=== PATIENT | female | born 1960 | race African-American/Black ===

== ENCOUNTER 2020-05-12 16:14 | Outpatient (CLI) | payer OTHER, SELFPAY ==
--- NOTE | ~2020-05-12 | US_ITS ---
EXAMINATION:US venous doppler LE LT INDICATION:Left leg pain TECHNIQUE: Multiple grayscale, color flow and Doppler images of the left lower extremity deep venous systems were obtained and reviewed. COMPARISON:No prior studies for comparison. FINDINGS: The common femoral, superficial femoral and popliteal veins demonstrate normal respiratory variation, augmentation and compressibility. Color flow is also seen within the posterior tibial, pe roneal, greater saphenous and profunda veins. IMPRESSION: 1: No lower extremity deep venous thrombosis. Reviewed, dictated and finalized at location B.
== END 2020-05-12 16:15 | disposition home or self-care (01) ==
PROVIDERS: PCP Family Medicine; Visit Provider Physician Assistant
DX: M79.605 Pain in left leg (principal); M79.89 Other specified soft tissue disorders
CPT/HCPCS: 93971

== ENCOUNTER → 2020-09-06 10:53 | Outpatient (CLI) | payer OTHER, SELFPAY ==
--- NOTE | ~2020-09-06 | CT_ITS ---
EXAMINATION: CT abdomen wo con DATE: 09/06/2020 11:08 INDICATION: Left upper quadrant pain, left upper quadrant mass TECHNIQUE: Computed tomography (CT) of the abdomen was performed without intravenous contrast. The do se-length product (DLP) was 584.02 mGy-cm. Automated exposure control and iterative reconstruction te chnique were employed. COMPARISON: 01/03/2017 FINDINGS: The lung bases are clear. The heart size is normal. The liver, spleen, pancreas, gallbladde r, and adrenal glands are normal. There is a 1.7 cm cyst of the left kidney upper pole. There is an 1 1 mm cyst of right kidney upper pole. There are no pathologically enlarged abdominal lymph nodes. The re is no free intraperitoneal gas or evidence of bowel obstruction. There is mild lumbar spondylosis. There is a tiny fat-containing umbilical hernia. IMPRESSION: 1. No CT correlate for the patient's symptoms. Reviewed, dictated and finalized at location A. MOTIVE MAINTENANCE TECHNICIAN
== END ==
PROVIDERS: PCP Family Medicine; Visit Provider Surgery
DX: R10.12 Left upper quadrant pain (principal); N28.1 Cyst of kidney, acquired; K42.9 Umbilical hernia without obstruction or gangrene; M47.816 Spondylosis without myelopathy or radiculopathy, lumbar region
CPT/HCPCS: 74150

== ENCOUNTER → 2020-10-26 13:00 | Outpatient (CLI) | payer OTHER, SELFPAY ==
--- NOTE | ~2020-10-26 | US_ITS ---
EXAMINATION: US soft tissue abdomen DATE: 10/26/2020 13:20 INDICATION: Left upper quadrant abdominal wall mass TECHNIQUE: Multiple grayscale and Doppler ultrasound images of the abdominal wall the left upper quad rant of the abdomen at the region of concern were obtained. COMPARISON: CT dated 09/06/2020 FINDINGS: Normal appearance to the subcutaneous fat and underlying anterior abdominal wall musculature at the l eft upper quadrant region of concern. No abnormal masses or fluid collections identified. IMPRESSION: 1. Normal study. No abnormal masses or fluid collections identified. Reviewed, dictated and finalized at location B. ONNEL ADMINISTRATOR
== END ==
PROVIDERS: PCP Family Medicine; Visit Provider Surgery
DX: R19.02 Left upper quadrant abdominal swelling, mass and lump (principal)
CPT/HCPCS: 76705

== ENCOUNTER 2022-07-17 09:21 | Emergency (ER) | payer OTHER, SELFPAY ==
--- NOTE | ~2022-07-17 | XR_ITS ---
XR foot RT min 3V 07/17/2022 10:02 INDICATION: Dorsal foot pain PROCEDURE: 4 views right foot COMPARISON: No prior studies for comparison. FINDINGS: Fracture, dislocation or subluxation is not identified. Lisfranc joint is intact. The soft tissues appear within normal limits. No foreign bodies are identified. IMPRESSION: 1: NO ACUTE BONE OR JOINT ABNORMALITY IDENTIFIED. Reviewed, dictated and finalized at location B. CCO HANGER
--- NOTE | 2022-07-17 09:25 | ED.LOWEXIN ---
HPI - Extremity Injury (Lower) General Chief Complaint: Extremity Injury, Lower Stated Complaint: rt foot injury Time Seen by Provider: 07/17/22 09:25 Source: patient and RN notes reviewed History of Present Illness HPI Narrative: Patient is a 61-year-old female who presents to urgent care with complaints of right foot pain. Patient states that she wore tight she wants Sunday and noticed she was having pain across the top of her foot afterwards. Patient states that goes into the center of the foot with movement, flexion or weight-bearing. Denies any history of fracture to the right foot. Denies history of gout. Patient states that she is taking aspirin for the pain. No other acute complaints. No acute distress noted. Patient aware of plan of care. Some parts of this dictation were generated by voice recognition software and may contain typographical and/or grammatical inaccuracies. Related Data Home Medications Medication Instructions Recorded Confirmed aspirin 81 mg tablet,delayed 81 mg PO DAILY 02/03/20 07/17/22 release evolocumab 420 mg/3.5 mL 420 mg subcut MONTHLY 02/03/20 07/17/22 subcutaneous wearable injector (Repatha Pushtronex) olmesartan 40 mg-amlodipine 10 1 tablet PO DAILY 02/03/20 07/17/22 mg-hydrochlorothiazide 25 mg tablet (Tribenzor) spironolactone 25 mg tablet 25 mg PO DAILY 02/03/20 07/17/22 Allergies Allergy/AdvReac Type Severity Reaction Status Date / Time metoclopramide Allergy Severe throat Verified 07/17/22 09:37 swelling Review of Systems Review of Systems: CONSTITUTIONAL: Denies fever, chills, or sweats. EYES: Denies visual changes, redness, or discharge. ENT: Denies rhinorrhea, congestion, sore throat, or otalgia. CARDIOVASCULAR: Denies chest pain, palpitations, or edema. RESPIRATORY: Denies cough or dyspnea. GASTROINTESTINAL: Denies abdominal pain, nausea, vomiting, or diarrhea. GENITOURINARY: Denies dysuria or hematuria. SKIN: Denies rash or itching. MUSCULOSKELETAL: Reports of right foot pain NEUROLOGIC: Denies headache, numbness, or weakness. All other systems reviewed are negative, except as documented in HPI. [facility] Past Medical History Medical History (Updated 07/17/22 @ 10:27 by ZORAIDA Mazariegos) Benign essential HTN CAD (coronary atherosclerotic disease) Chronic constipation History of rectal polyps Hyperlipidemia LGSIL on Pap smear of cervix Retinal tears, multiple, without detachment Surgical History Surgical History (Updated 06/08/22 @ 09:[address] MD) H/O breast biopsy H/O colonoscopy with polypectomy H/O colposcopy with cervical biopsy History of heart bypass surgery x2 S/P CABG x 2 Family History Family History Father Cerebrovascular accident Mother Diabetes mellitus Hypertension Family history of cardiovascular disease High cholesterol Sibling Diabetes mellitus Hypertension Family history of cardiovascular disease Grandparent Cancer Social History Social History (Updated 06/08/22 @ 07:36 by Khushbu Nina) Social History: Smoking status: Never smoker Second hand tobacco smoke exposure: No Alcohol intake: never Substance use: never Substance use type: does not use 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 HEAD: normocephalic, atraumatic. EYES: PERRL. Sclera clear/white. Vision is grossly intact. EARS: External ears normal NOSE: External nose normal with no obvious nasal discharge, nares without redness, no rhinorrhea. THROAT: Mucous membranes moist NECK: Neck supple SKIN: warm, intact with no suspicious lesions or rash, good texture and turgor. NEURO
[2022-07-17 09:34] VITALS: BP 117/76; PULSE 86; RESP 16; TEMP 36.5; O2SAT 100
== END 2022-07-17 10:37 | disposition home or self-care (01) ==
PROVIDERS: Emergency Provider Nurse Practitioner Family; PCP Family Medicine
DX: M79.671 Pain in right foot (principal); Z79.82 Long term (current) use of aspirin; I25.10 Atherosclerotic heart disease of native coronary artery without angina pectoris; I10 Essential (primary) hypertension; E78.5 Hyperlipidemia, unspecified; Z95.1 Presence of aortocoronary bypass graft
CPT/HCPCS: 73630; 99213; G0463

== ENCOUNTER → 2022-09-11 16:15 | Outpatient (CLI) | payer OTHER, SELFPAY ==
--- NOTE | ~2022-09-11 | XR_ITS ---
[id number]_CR DATE: 09/11/2022 16:34 INDICATION: Left pleural pain TECHNIQUE: PA chest. 3 views of the left ribs. COMPARISON: None FINDINGS: Status post sternotomy and probable coronary artery bypass graft surgery. There is mild left glenohumeral osteoarthritis. No pulmonary infiltrate or consolidation, pleural effusion or pulmonary vascular congestion or pneumo thorax. Heart size borderline. No left rib fracture or bone destruction is detected. IMPRESSION: No left rib fracture or bone destruction Status post sternotomy and probable coronary bypass graft surgery Reviewed, dictated and finalized at Location A. Reviewed, dictated and finalized at location B. E WATER WORKER
== END ==
PROVIDERS: PCP Nurse Practitioner Gerontology; Visit Provider Nurse Practitioner Gerontology
DX: R07.81 Pleurodynia (principal)
CPT/HCPCS: 71101

== ENCOUNTER 2022-10-30 00:27 | Day surgery (SDC) | payer OTHER, SELFPAY ==
[2022-10-17 13:03] VITALS: BMI 33.3
--- NOTE | 2022-10-27 16:16 | PM.HPGS ---
History of Present Illness History of Present Illness Consent: Risks, benefits, and alternatives have been discussed and questions answered. Patient agrees to proceed with procedure. Chief complaint: GERD Narrative: Reyna Magdaleno is a 62 year old female Referred for investigation of chronic reflux symptoms. she will often get heartburn that is generally relieved by taking Rolaids. She also has episodes of regurgitation. In addition to all this, over the last year so she has noticed a bulge to the left of the epigastric area. This is much more noticeable if she is standing up or if she coughs. She has had no weight loss. Very rarely she will have some difficulty swallowing food. Review of Systems Review of Systems: All systems reviewed & are unremarkable except as noted in HPI and below PMFSH Past Medical History Medical History Benign essential HTN CAD (coronary atherosclerotic disease) Chronic constipation History of rectal polyps Hyperlipidemia LGSIL on Pap smear of cervix Retinal tears, multiple, without detachment Surgical History Surgical History H/O breast biopsy H/O colonoscopy with polypectomy H/O colposcopy with cervical biopsy History of heart bypass surgery x2 S/P CABG x 2 Family History Family History Father Cerebrovascular accident Mother Diabetes mellitus Hypertension Family history of cardiovascular disease High cholesterol Sibling Diabetes mellitus Hypertension Family history of cardiovascular disease Grandparent Cancer Social History Social History Social History: Smoking status: Never smoker Second hand tobacco smoke exposure: No Alcohol intake: never Substance use: never Substance use type: does not use Lack of Transportation: No Lack of Food: Never True Current Housing: I Have Housing Concerned About Future Housing: No Difficulty Paying Gas/Electric Bills: No Difficulty Paying for Meds: No Currently Unemployed: No Education: Bachelor's Degree Living arrangements: alone Occupation/Education: occupation 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 Sexual Orientation (if Verbalized by the Patient): Straight or Heterosexual Meds Home Medications and Allergies Home Medications Medication Instructions Recorded Confirmed Type aspirin 81 mg tablet,delayed 81 mg PO DAILY 02/03/20 10/17/22 History release olmesartan 40 mg-amlodipine 10 1 tablet PO DAILY 02/03/20 10/17/22 History mg-hydrochlorothiazide 25 mg tablet (Tribenzor) spironolactone 25 mg tablet 25 mg PO DAILY 02/03/20 10/17/22 History alirocumab 75 mg/mL subcutaneous 75 mg subcut Q14D 10/17/22 10/17/22 History pen injector (Praluent Pen) Allergies Allergy/AdvReac Type Severity Reaction Status Date / Time metoclopramide Allergy Severe throat Verified 10/30/22 07:19 swelling Exam Const: General: alert Orientation/consciousness: patient oriented x3 Resp: Auscultation: clear to auscultation bilaterally Cardio: Rhythm: regular rhythm GI: GI Palp: Yes Soft to palpation and No Tenderness to palpation present (GI) Neuro: General: patient oriented x3 Assessment and Plan Assessment and plan (1) GERD (gastroesophageal reflux disease): Code(s): K21.9 - Gastro-esophageal reflux disease without esophagitis Status: Acute Assessment and Plan: EGD with possible biopsy or dilatation or cautery.
[2022-10-30 07:20] VITALS: BP 146/86; PULSE 81; RESP 18; TEMP 36.1; O2SAT 100
[2022-10-30] MEDS: LACTATED RINGERS 1,000 ML 150 ML IV CONT (07:30)
--- NOTE | 2022-10-30 07:55 | WPDANESEPPF ---
Anes - Initial Pre Proc Eval Procedure: Operation Date: 10/30/22 08:30 Proposed Procedures p Esophagogastroduodenoscopy - Braden Bhakta MD Date/Time: 10/30/22 07:55 Surgeon: Braden Bhakta MD Pre Op Diagnosis: GERD Patient Data Age: 62 Gender: F Height: 1.68 m Weight: 93.3 kg Last Vital Signs Temp 36.1 C L 10/30/22 07:20 Pulse 81 10/30/22 07:20 Resp 18 10/30/22 07:20 BP 146/86 H 10/30/22 07:20 Pulse Ox 100 10/30/22 07:20 O2 Del Method Room Air 10/30/22 07:20 Allergies Allergy/AdvReac Type Severity Reaction Status Date / Time metoclopramide Allergy Severe throat Verified 10/30/22 07:19 swelling Home Medications Medication Instructions Recorded Confirmed Type aspirin 81 mg tablet,delayed 81 mg PO DAILY 02/03/20 10/17/22 History release olmesartan 40 mg-amlodipine 10 1 tablet PO DAILY 02/03/20 10/17/22 History mg-hydrochlorothiazide 25 mg tablet (Tribenzor) spironolactone 25 mg tablet 25 mg PO DAILY 02/03/20 10/17/22 History alirocumab 75 mg/mL subcutaneous 75 mg subcut Q14D 10/17/22 10/17/22 History pen injector (Praluent Pen) Patient hx anesthesia problems: none Family hx anesthesia problems: none Results Review: All pre-operative results and documents have been reviewed as part of the pre-operative evaluation. [facility] Past Medical History Medical History Benign essential HTN CAD (coronary atherosclerotic disease) Chronic constipation History of rectal polyps Hyperlipidemia LGSIL on Pap smear of cervix Retinal tears, multiple, without detachment Surgical History Surgical History H/O breast biopsy H/O colonoscopy with polypectomy H/O colposcopy with cervical biopsy History of heart bypass surgery x2 S/P CABG x 2 Family History Family History Father Cerebrovascular accident Mother Diabetes mellitus Hypertension Family history of cardiovascular disease High cholesterol Sibling Diabetes mellitus Hypertension Family history of cardiovascular disease Grandparent Cancer Social History Social History Social History: Smoking status: Never smoker Second hand tobacco smoke exposure: No Alcohol intake: never Substance use: never Substance use type: does not use Lack of Transportation: No Lack of Food: Never True Current Housing: I Have Housing Concerned About Future Housing: No Difficulty Paying Gas/Electric Bills: No Difficulty Paying for Meds: No Currently Unemployed: No Education: Bachelor's Degree Living arrangements: alone Occupation/Education: occupation 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 Informed Consent: The patient's anesthetic plan and its attendant risks and benefits were discussed with the patient/family/POA. Questions were solicited and answers provided to the satisfaction of the patient/family/POA.
[2022-10-30 08:41] VITALS: BP 130/74; PULSE 79; RESP 22; O2SAT 98
[2022-10-30 08:51] VITALS: BP 131/71; PULSE 74; RESP 21; O2SAT 100
[2022-10-30 09:01] VITALS: BP 143/76; PULSE 78; RESP 19; O2SAT 100
== END 2022-10-30 09:14 | disposition home or self-care (01) ==
PROVIDERS: PCP Family Medicine; Visit Provider Internal Medicine Gastroenterology
PROC: 0DJ08ZZ Inspection of Upper Intestinal Tract, Via Natural or Artificial Opening Endoscopic (ICD-10-PCS; CPT 43235; principal; 2022-10-30 08:30)
DX: K21.9 Gastro-esophageal reflux disease without esophagitis (principal); I10 Essential (primary) hypertension; I25.10 Atherosclerotic heart disease of native coronary artery without angina pectoris; E78.5 Hyperlipidemia, unspecified; K59.09 Other constipation; Z95.1 Presence of aortocoronary bypass graft; E66.9 Obesity, unspecified; Z68.33 Body mass index [BMI] 33.0-33.9, adult; Z79.82 Long term (current) use of aspirin
CPT/HCPCS: 43239; 87081; J2704; J7120

== ENCOUNTER → 2023-01-01 15:43 | Outpatient (CLI) | payer OTHER, SELFPAY ==
--- NOTE | ~2023-01-01 | US_ITS ---
US renal BI 01/01/2023 16:02 Procedure: Realtime transabdominal ultrasound of the kidneys and bladder. Indication: Chronic kidney disease stage III B Comparison: CT dated 09/06/2019 Findings: Renal echotexture is normal bilaterally without hydronephrosis, contour deforming mass or r enal calculus. There are bilateral renal cysts measuring 1.4 cm on the right and 2.2 cm on the left. The right kidney measures 10.3 cm and left kidney measures 11.3 cm. There are small echogenic masses inferiorly and posteriorly in the bladder measuring 11 and 1.7 cm respectively. Impression: 1: Bladder masses, largest measuring 1.7 cm, located anteriorly/posteriorly. Differential diagnosis i ncludes blood clot and bladder cancer. Recommend correlation with cystoscopy. 2: Bilateral renal cysts. Reviewed, dictated and finalized at location B. Impression: 1: Bladder masses, largest measuring 1.7 cm, located anteriorly/posteriorly. Di fferential diagnosis includes blood clot and bladder cancer. Recommend correlat ion with cystoscopy. 2: Bilateral renal cysts.
== END ==
PROVIDERS: PCP Internal Medicine Nephrology; Visit Provider Internal Medicine Nephrology
DX: I10 Essential (primary) hypertension (principal); N18.32 Chronic kidney disease, stage 3b; N32.9 Bladder disorder, unspecified; N28.1 Cyst of kidney, acquired
CPT/HCPCS: 76775

== ENCOUNTER 2023-02-15 19:47 | Emergency (ER) | payer OTHER, SELFPAY ==
--- NOTE | ~2023-02-15 | XR_ITS ---
EXAM: XR foot RT min 3V DATE: 02/15/2023 21:34 HISTORY: Pain at base of 5th metatarsal . COMPARISON: 07/17/2022. FINDINGS: Normal mineralization. No fracture or dislocation. No lytic or blastic lesion. Mild hallux valgus. Mild degenerative change at the first MTP joint. No erosion or periosteal change. Soft tissu e swelling in the foot and ankle. IMPRESSION: No acute osseous finding in the right foot. Reviewed, dictated and finalized at location K.
--- NOTE | ~2023-02-15 | XR_ITS ---
EXAM: XR ankle RT min 3V DATE: 02/15/2023 20:06 HISTORY: Fall, right ankle pain . COMPARISON: None available. FINDINGS: Normal mineralization. No fracture or dislocation. No lytic or blastic lesion. Mild degene rative change at the tibiotalar joint and multiple midfoot joints. No erosion or periosteal change. M edial soft tissue swelling. IMPRESSION: No acute osseous finding in the right ankle. Reviewed, dictated and finalized at location K.
[2023-02-15 19:52] VITALS: BP 120/79; PULSE 95; RESP 14; TEMP 36.7; O2SAT 100
--- NOTE | 2023-02-15 21:24 | ED.GENADULT ---
HPI - General Adult General Chief complaint: Extremity Injury, Lower Stated complaint: GLF Time Seen by Provider: 02/15/23 20:04 History of Present Illness HPI narrative: this is a 62-year-old female presenting ED with ankle pain. Patient was walking when she tripped over her sweater. She had an inversion injury to her right ankle. She then fell landed on her left wrist. She has been unable to bear weight on the left foot. She is not taking anything for pain control. She refused any workup of her left wrist as it is not bothering her. Related Data Home Medications Medication Instructions Recorded Confirmed aspirin 81 mg tablet,delayed 81 mg PO DAILY 02/03/20 01/08/23 release olmesartan 40 mg-amlodipine 10 1 tablet PO DAILY 02/03/20 01/08/23 mg-hydrochlorothiazide 25 mg tablet (Tribenzor) spironolactone 25 mg tablet 25 mg PO DAILY 02/03/20 01/08/23 alirocumab 75 mg/mL subcutaneous 75 mg subcut Q14D 10/17/22 01/08/23 pen injector (Praluent Pen) Allergies Allergy/AdvReac Type Severity Reaction Status Date / Time metoclopramide Allergy Severe throat Verified 02/06/23 08:41 swelling PMFSH Past Medical History Medical History Benign essential HTN CAD (coronary atherosclerotic disease) Chronic constipation Chronic kidney disease History of rectal polyps Hyperlipidemia LGSIL on Pap smear of cervix Retinal tears, multiple, without detachment Surgical History Surgical History H/O breast biopsy H/O colonoscopy with polypectomy H/O colposcopy with cervical biopsy History of heart bypass surgery x2 S/P CABG x 2 S/P cataract extraction and insertion of intraocular lens Right eye. Family History Family History Father Cerebrovascular accident Mother Diabetes mellitus Hypertension Family history of cardiovascular disease High cholesterol Sibling Diabetes mellitus Hypertension Family history of cardiovascular disease Grandparent Cancer Social History Social History Social History: Smoking status: Never smoker Second hand tobacco smoke exposure: No Alcohol intake: never Substance use: never Substance use type: does not use Lack of Transportation: No Lack of Food: Never True Current Housing: I Have Housing Concerned About Future Housing: No Difficulty Paying Gas/Electric Bills: No Difficulty Paying for Meds: No Currently Unemployed: No Education: Bachelor's Degree Living arrangements: alone Occupation/Education: occupation 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 Head: atraumatic. EYES: EOMI, NOSE: Atraumatic NECK: Trachea midline RESPIRATORY: No increased rate of breathing CARDIOVASCULAR: RRR, ABDOMINAL: Non-distended MUSCULOSKELETAl: Focal exam of the right lower extremity revealed diffuse swelling of the ankle. There is tenderness to palpation over the base of5th metacarpal, and ATFL. Sensation light touch and motor function intact. NEURO: Alert. Moving 4/4 extremities SKIN:: Warm, dry. Normal color PSYCHIATRIC: Normal affect Course Vital Signs Vital signs: Vital Signs Temperature 98.0 F 02/15/23 19:52 Pulse Rate 95 02/15/23 19:52 Respiratory Rate 14 02/15/23 19:52 Blood Pressure 120/79 02/15/23 19:52 Pulse Oximetry 100 02/15/23 19:52 Oxygen Delivery Room Air 02/15/23 19:52 Temperature 98.0 F 02/15/23 19:52 Pulse Rate 95 02/15/23 19:52 Respiratory Rate 14 02/15/23 19:52 Blood Pressure 120/79 02/15/23 19:52 Pulse Oximetry
== END 2023-02-15 22:05 | disposition home or self-care (01) ==
PROVIDERS: Emergency Provider Emergency Medicine; PCP Family Medicine
DX: S93.401A Sprain of unspecified ligament of right ankle, initial encounter (principal); I12.9 Hypertensive chronic kidney disease with stage 1 through stage 4 chronic kidney disease, or unspecified chronic kidney disease; N18.9 Chronic kidney disease, unspecified; I25.10 Atherosclerotic heart disease of native coronary artery without angina pectoris; E78.5 Hyperlipidemia, unspecified; Z95.1 Presence of aortocoronary bypass graft; Z87.19 Personal history of other diseases of the digestive system; Z79.82 Long term (current) use of aspirin; Z98.41 Cataract extraction status, right eye; Z96.1 Presence of intraocular lens; X50.9XXA Other and unspecified overexertion or strenuous movements or postures, initial encounter; W01.0XXA Fall on same level from slipping, tripping and stumbling without subsequent striking against object, initial encounter
CPT/HCPCS: 73610; 73630; 99283

== ENCOUNTER → 2023-04-28 11:27 | Outpatient (CLI) | payer OTHER, SELFPAY ==
--- NOTE | ~2023-04-28 | MM_ITS ---
EXAMINATION: MM screening sarita BI w darryn HISTORY: Screening mammogram TECHNIQUE: Craniocaudal and mediolateral oblique 3-D tomosynthesis images were obtained and synthetic 2-D images were generated. CAD analysis was submitted and interpreted. COMPARISON: 03/28/2019, 05/16/2016 bilateral screening mammogram examinations BREAST PARENCHYMAL COMPOSITION: The breasts are heterogeneously dense, which may obscure small masses . FINDINGS: There is no evidence of suspicious mass, calcification, or architectural distortion to sugg est malignancy in either breast. There has been no suspicious interval change. IMPRESSION: 1. No mammographic evidence of malignancy. 2. Recommend routine screening mammography in one year. BI-RADS Category 1: Negative Reviewed, dictated and finalized at location A.
== END ==
PROVIDERS: PCP Family Medicine; Visit Provider Registered Nurse
DX: Z12.31 Encounter for screening mammogram for malignant neoplasm of breast (principal)
CPT/HCPCS: 77063; 77067

== ENCOUNTER 2023-07-28 19:41 | Emergency (ER) | payer OTHER, SELFPAY ==
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
[2023-07-28 20:03] VITALS: BP 129/64; PULSE 92; RESP 18; TEMP 36.6; O2SAT 100
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
== END 2023-07-29 02:36 | disposition home or self-care (01) ==
PROVIDERS: Emergency Provider Emergency Medicine; PCP Family Medicine
DX: S09.90XA Unspecified injury of head, initial encounter (principal); S16.1XXA Strain of muscle, fascia and tendon at neck level, initial encounter; I25.10 Atherosclerotic heart disease of native coronary artery without angina pectoris; I12.9 Hypertensive chronic kidney disease with stage 1 through stage 4 chronic kidney disease, or unspecified chronic kidney disease; N18.9 Chronic kidney disease, unspecified; E78.5 Hyperlipidemia, unspecified; K59.09 Other constipation; Z95.1 Presence of aortocoronary bypass graft; Z98.41 Cataract extraction status, right eye; Z96.1 Presence of intraocular lens; Z87.19 Personal history of other diseases of the digestive system; M47.812 Spondylosis without myelopathy or radiculopathy, cervical region; V49.40XA Driver injured in collision with unspecified motor vehicles in traffic accident, initial encounter
CPT/HCPCS: 70450; 72125; 99284

== ENCOUNTER 2024-05-03 10:42 | Outpatient (CLI) | payer BC, SELFPAY ==
--- NOTE | ~2024-05-03 | MM_ITS ---
EXAMINATION: MM screening sarita BI w darryn HISTORY: Screening mammogram TECHNIQUE: Craniocaudal and mediolateral oblique 3-D tomosynthesis images were obtained and synthetic 2-D images were generated. CAD analysis was submitted and interpreted. COMPARISON: 04/28/2023, 03/28/2019 BREAST PARENCHYMAL COMPOSITION:Not Dense. There are scattered areas of fibroglandular density. FINDINGS: No suspicious mass, calcification, or architectural distortion are identified in either niki ast to suggest malignancy. There has been no suspicious interval change. IMPRESSION: No mammographic evidence of malignancy. Recommend routine screening mammography in one year. BI-RADS Category 1: Negative Reviewed, dictated and finalized at location .
== END 2024-05-03 10:43 | disposition home or self-care (01) ==
PROVIDERS: PCP Family Medicine; Visit Provider Family Medicine
DX: Z12.31 Encounter for screening mammogram for malignant neoplasm of breast (principal)
CPT/HCPCS: 77063; 77067

== ENCOUNTER 2024-11-07 14:25 | Outpatient (CLI) | payer BC, SELFPAY ==
--- NOTE | ~2024-11-07 | US_ITS ---
Left UPPER QUADRANT ABDOMINAL wall ULTRASOUND (Doppler ultrasound interrogation techniques used as ne eded for this exam.) Ordering provider: Josephine Miller PA-C History: . LUQ mass . Comparison: None. FINDINGS/impression: No definite masses seen. Reviewed, dictated and finalized at location A.
== END 2024-11-07 14:26 | disposition home or self-care (01) ==
LOC: MICIMG 14:26
PROVIDERS: PCP Physician Assistant; Visit Provider Physician Assistant
DX: R19.02 Left upper quadrant abdominal swelling, mass and lump (principal)
CPT/HCPCS: 76705